=== PATIENT | male | born 2000 | race Caucasian/White ===

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

== ENCOUNTER 2018-06-29 22:21 | Emergency (ER) | payer BC, OTHER ==
[2018-06-29] MEDS ORDERED: Sodium Chloride 0.9% 2.5 ML Syringe FLUSH PRN (22:27)
[2018-06-29] MEDS ORDERED: Ketorolac 30 MG/ML SDV IVPUSH ONE (22:27)
[2018-06-29] MEDS ORDERED: Sodium Chloride 0.9% 1,000 ML IV ONE (22:27)
[2018-06-29] MEDS ORDERED: Sodium Chloride 0.9% 10 ML Syringe FLUSH PRN (22:27)
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
[2018-06-29 22:38] VITALS: BP 141/65
[2018-06-29 23:32] LABS: CHLORIDE,CL 102 mmol/L (98-107); SODIUM,NA 138 mmol/L (136-148)
[2018-06-30] MEDS ORDERED: Ibuprofen 800 MG Tab PO ONE (00:18)
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
== END 2018-06-30 00:26 | disposition home or self-care (01) ==
LOC: MW.ED 22:21
DX: S06.0X1A Concussion with loss of consciousness of 30 minutes or less, initial encounter (principal); V47.5XXA Car driver injured in collision with fixed or stationary object in traffic accident, initial encounter
CPT/HCPCS: 36415; 70450; 71045; 72125; 80053; 83690; 85025; 85610; 93005; 99285; A9270; G0390; 99284

== ENCOUNTER 2021-09-27 14:25 | Emergency (ER) | payer BC ==
--- NOTE | 2021-09-27 15:02 | PCM.EKG ---
#1 Interpretation Time: 14:55 EKG Interpretation Comments: EKG: NSR, nonspecific ST/T changes, Rate -77
--- NOTE | 2021-09-27 16:07 | EDM.PDOC ---
ED HPI GENERAL MEDICAL PROBLEM - General Chief Complaint: Head Injury Stated Complaint: PASSED OUT AND HIT HEAD Time Seen by Provider: 09/27/21 15:21 Source of Information: Reports: Patient History Limitations: Reports: No Limitations - History of Present Illness INITIAL COMMENTS - FREE TEXT/NARRATIVE: HISTORY AND PHYSICAL: History of present illness: Patient is a 21-year-old male who presents emergency room today with concern of a syncopal event that occurred just prior to arrival to the emergency room. Patient states that he was donating blood and was moved from the donation chair into the watching phase. Patient states that he was sitting in the chair when he had lost consciousness. Patient states that he slipped out of the chair and did hit his chin on the floor and this was witnessed. He did not hit any additional part of his head. He states that he was only unconscious for a few seconds but then when he woke, they were concerned and called an ambulance that brought him here to the emergency room. Patient states that at this time, he is completely asymptomatic and has no symptoms or concerns. Patient states he is up-to-date on his tetanus within 5 years. Patient denies fever, chills, chest pain, shortness of breath, or cough. Denies headache, neck stiff ness, change in vision, syncope, or near syncope. Denies nausea, vomiting, abdominal pain, diarrhea, constipation, or dysuria. Has not noted any blood in urine or stool. Patient has been eating and drinking appropriately. Review of systems: As per history of present illness and below otherwise all systems reviewed and negative. Past medical history: As per history of present illness and as reviewed below otherwise noncontributory. Surgical history: As per history of present illness and as reviewed below otherwise noncontributory. Social history: See social history for further information Family history: As per history of present illness and as reviewed below otherwise noncon tributory. Physical exam: General: Patient is alert, oriented, and in no acute distress. Patient sitting comfortably on exam table. Vitals stable and reviewed by me. HEENT: There is a 0.5cm superficial laceration of the chin with hemostasis. No underlying crepitus. Otherwise, atraumatic, normocephalic, pupils equal and reactive bilaterally, negative for conjunctival pallor or scleral icterus, mu cous membranes moist, throat clear, neck supple, nontender, trachea midline. No drooling or trismus noted. No meningeal signs. No hot potato voice noted. Lungs: Clear to auscultation, breath sounds equal bilaterally, chest nontender. Heart: S1S2, regular rate and rhythm without overt murmur Abdomen: Soft, nondistended, nontender. Negative for masses or hepatosplenomegaly. Negative for costovertebral tenderness. Pelvis: Stable nontender. Genitourinary: Deferred. Rectal: Deferred. Skin: Intact, warm, dry. No lesions or rashes noted. Extremities: Atraumatic, negative for cords or calf pain. Neurovascular unremarkable. Neuro: Awake, alert, oriented. Cranial nerves II through XII unremarkable. Cerebellum unremarkable. Motor and sensory unremarkable throughout. Exam nonfocal. Medical Decision Making: Patient is a 21-year-old male who presents emergency room today with concern of syncopal event following blood donation with associated chin injury. Upon arrival to the ED, patient is vitally stable and well-appearing on exam. He does have a small 0.5 cm superficial laceration of the chin, exam is otherwise unremarkable. I did offer to Dermabond and Steri-Strip the laceration, however, patient declines. All risks versus benefits discussed with patient and expresses understanding. Will obtain cardiac evaluation and reassess patient. See Dr. Keene's dictation for specific EKG interpretation. Otherwise, normal sinus rhythm without STEMI CBC does show mild leukocytosis at 12.48 (nonspecific at this time as patient does not have any symptomatic complaints), otherwise mild derangements of CBC are unremarkable. CMP does show an isolated elevation of BUN at 25, otherwise mild derangements of CMP are unremarkable. Troponin negative. Chest x-ray is unremarkable. Upon reevaluation of patient, he remains vitally stable and comfortable throughout stay in ED. He does not have any symptoms at this time. Strict return precautions thoroughly discussed with patient. Discussed importance for follow-up with a primary care provider. Voices understanding and is agreeable to plan of care. Denies any further questions or concerns at this time. Diagnostics: EKG, CBC, CMP, chest x-ray 1 view, troponin Therapeutics: None Prescription: None Impression: Syncope, likely vasovagal Chin laceration Plan: 1. You can alternate ibuprofen and Tylenol as directed for pain and discomfort. 2. Follow-up with a primary care provider as discussed. Return to the ED as needed and as discussed. Definitive disposition and diagnosis as appropriate pending reevaluation and review of above. - Related Data Allergies Allergy/AdvReac Type Severity Reaction Status Date / Time No Known Allergies Allergy Verified 09/27/21 14:59 Home Meds: Home Meds PARoxetine [Paxil] 10 mg PO DAILY 09/27/21 [History] Past Medical History - Past Health History Medical/Surgical History: Denies Medical/Surgical History - Infectious Disease History Infectious Disease History: Reports: None Social & Family History - Family History Family Medical History: No Pertinent Family History - Tobacco Use Tobacco Use Status *Q: Never Tobacco User - Caffeine Use Caffeine Use: Reports: Coffee, Energy Drinks, Tea - Recreational Drug Use Recreational Drug Use: No ED ROS GENERAL - Review of Systems Review Of Systems: Comprehensive ROS is negative, except as noted in HPI. ED EXAM, GENERAL - Physical Exam Exam: See Below (See dictation) Course - Vital Signs Last Recorded V/S: Last Vital Signs Temp 98.1 F 09/27/21 15:33 Pulse 84 09/27/21 16:49 Resp 16 09/27/21 16:49 BP 123/72 09/27/21 16:49 Pulse Ox 99 09/27/21 16:49 - Orders/Labs/Meds Labs: Laboratory Tests 09/27/21 09/27/21 Range/Units 16:14 16:14 WBC 12.48 H (4.0-11.0) K/uL RBC 4.71 (4.50-5.90) M/uL Hgb 14.4 (13.0-17.0) g/dL Hct 42.0 (38.0-50.0) % MCV 89.2 (80.0-98.0) fL MCH 30.6 (27.0-32.0) pg MCHC 34.3 (31.0-37.0) g/dL RDW Std Deviation 41.8 (28.0-62.0) fl RDW Coeff of Brianna 13 (11.0-15.0) % Plt Count 257 (150-400) K/uL MPV 12.80 H (7.40-12.00) fL Neut % (Auto) 88.9 H (48.0-80.0) % Lymph % (Auto) 7.0 L (16.0-40.0) % [place] % (Auto) 3.7 (0.0-15.0) % Eos % (Auto) 0.2 (0.0-7.0) % Baso % (Auto) 0.2 (0.0-1.5) % Neut # (Auto) 11.1 H (1.4-5.7) K/uL Lymph # (Auto) 0.9 (0.6-2.4) K/uL [place] # (Auto) 0.5 (0.0-0.8) K/uL Eos # (Auto) 0.0 (0.0-0.7) K/uL Baso # (Auto) 0.0 (0.0-0.1) K/uL Nucleated RBC % 0.0 /100WBC Nucleated RBCs # 0 K/uL Sodium 138 (136-148) mmol/L Potassium 4.2 (3.5-5.1) mmol/L Chloride 102 (98-107) mmol/L Carbon Dioxide 28.1 (21.0-32.0) mmol/L BUN 25 H (7.0-18.0) mg/dL Creatinine 0.9 (0.8-1.3) mg/dL Est Cr Clr Drug Dosing 135.96 mL/min Estimated GFR (MDRD) > 60.0 ml/min Glucose 112 H (74-106) mg/dL Calcium 9.5 (8.5-10.1) mg/dL Total Bilirubin 1.1 H (0.2-1.0) mg/dL AST 11 L (15-37) IU/L ALT 23 (14-63) IU/L Alkaline Phosphatase 59 (46-116) U/L Troponin I < 0.050 (0.000-0.056) ng/mL Total Protein 7.3 (6.4-8.2) g/dL Albumin 4.3 (3.4-5.0) g/dL Globulin 3.0 (2.6-4.0) g/dL Albumin/Globulin Ratio 1.4 (0.9-1.6) Departure - Departure Time of Disposition: 17:31 Disposition: Home, Self-Care 01 Clinical Impression: Vasovagal syncope - Discharge Information Referrals: Janet Gonzales, [employer] [Primary Care Provider] - Forms: ED Department Discharge Additional Instructions: The following information is given to patients seen in the emergency department who are being discharged to home. This information is to outline your options for follow-up care. We provide all patients seen in our emergency department with a follow-up referral. The need for follow-up, as well as the timing and circumstances, are variable depending upon the specifics of your emergency department visit. If you don't have a primary care physician on staff, we will provide you with a referral. We always advise you to contact your personal physician following an emergency department visit to inform them of the circumstance of the visit and for follow-up with them and/or the need for any referrals to a consulting specialist. The emergency department will also refer you to a specialist when appropriate. This referral assures that you have the opportunity for follow-up care with a specialist. All of these measure are taken in an effort to provide you with optimal care, which includes your follow-up. Under all circumstances we always encourage you to contact your private physician who remains a resource for coordinating your care. When calling for follow-up care, please make the office aware that this follow-up is from your recent emergency room visit. If for any reason you are refused follow-up, please contact the [facility] Emergency Department at and asked to speak to the emergency department charge nurse. [facility] [address] [place] [id number] [place] [address] 1. You can alternate ibuprofen and Tylenol as directed for pain and discomfort. 2. Follow-up with a primary care provider as discussed. Return to the ED as needed and as discussed. Sepsis Event Note (ED) - Evaluation Sepsis Screening Result: No Definite Risk - Focused Exam Vital Signs: Vital Signs Temp Pulse Resp BP Pulse Ox 09/27/21 16:49 84 16 123/72 99 09/27/21 15:33 98.1 F 76 18 117/72 100 09/27/21 14:59 97.5 F 69 16 113/69 99
[2021-09-27 16:50] VITALS: BP 123/72; PULSE 84
--- NOTE | 2021-09-27 16:51 | CR ---
INDICATION: Syncope. COMPARISON: none TECHNIQUE: Portable AP erect chest performed at 3:55 p.m. FINDINGS: The lungs are clear. There is no evidence of pneumothorax. The heart, mediastinum and pulmonary vessels are of normal size. There is no evidence of pleural fluid. IMPRESSION: Negative chest. Dictated by Dakotah Diaz MD @ 09/27/2021 4:50:04 PM (Electronically Signed)
[2021-09-27 16:53] LABS: BLOOD UREA NITROGEN,BUN 25 mg/dL (7.0-18.0); CARBON DIOXIDE,CO2 28.1 mmol/L (21.0-32.0); CHLORIDE,CL 102 mmol/L (98-107); GLUCOSE RANDOM 112 mg/dL (74-106); POTASSIUM,K 4.2 mmol/L (3.5-5.1); SODIUM,NA 138 mmol/L (136-148)
== END 2021-09-27 17:38 | disposition home or self-care (01) ==
LOC: MW.ED 14:25
DX: R55 Syncope and collapse (principal); S01.81XA Laceration without foreign body of other part of head, initial encounter; D72.829 Elevated white blood cell count, unspecified; W07.XXXA Fall from chair, initial encounter
CPT/HCPCS: 36415; 71045; 71045-26; 80053; 84484; 85025; 93005; 99284-25